=== PATIENT | female | born 1995 | race American Indian/Alaskan Native ===

== ENCOUNTER 2021-11-14 13:07 | Emergency (ER) | payer SELFPAY ==
[2021-11-14 13:37] VITALS: BP 119/81
[2021-11-14 14:28] LABS: Color,Urine Yellow (Yellow)
[2021-11-14 14:31] LABS: Mucus,Urine FEW /HPF; WBC,Urine < 1.0 /HPF (0.0-6.0)
[2021-11-14 14:37] LABS: HCG Qualitative,Urine Negative (Negative)
== END 2021-11-15 03:10 | disposition left against medical advice (07) ==
LOC: ED 13:07
DX: R10.9 Unspecified abdominal pain (principal); R19.7 Diarrhea, unspecified; Z53.21 Procedure and treatment not carried out due to patient leaving prior to being seen by health care provider
CPT/HCPCS: 81001; 81025